=== PATIENT | female | born 1995 | race Caucasian/White ===

== ENCOUNTER 2017-10-06 18:12 | Emergency (ER) | payer OTHER ==
[~2017-10-06] VITALS: Ht 167.6 cm; Wt 136.1 kg
[~2017-10-06 18:12] MED LIST: BIRTH CONTROL; HYDROCODONE-AP1 EAC6 PO; IBUPROFEN 800800 M1 PO; KEFLEX500 MG PO
[2017-10-06 19:05] VITALS: BP 148/88
== END 2017-10-06 19:05 | disposition home or self-care (01) ==
LOC: M.ERS 18:12
DX: S93.691A Other sprain of right foot, initial encounter (principal); Z88.1 Allergy status to other antibiotic agents; Z88.0 Allergy status to penicillin; X50.9XXA Other and unspecified overexertion or strenuous movements or postures, initial encounter; Y93.89 Activity, other specified; Y92.218 Other school as the place of occurrence of the external cause; Y99.8 Other external cause status

== ENCOUNTER 2020-12-09 00:58 | Emergency (ER) | payer OTHER ==
[~2020-12-09] VITALS: Ht 170.2 cm; Wt 122.5 kg
[2020-12-09] MEDS ORDERED: VISTARIL 25 MG25 M1 PO (01:10)
[2020-12-09 01:34] LABS: URINE BILIRUBIN NEGATIVE (Negative); URINE BLOOD 2+ (Negative); URINE CLARITY CLEAR; URINE COLOR YELLOW; URINE GLUCOSE-RANDOM NEGATIVE (Negative); URINE KETONES NEGATIVE (Negative); URINE LEUKOCYTES 1+ (Negative); URINE NITRITE NEGATIVE (Negative); URINE PROTEIN TRACE (Negative); URINE UROBILINOGEN 0.2 E.U./dl (0.2-1.0)
[2020-12-09 02:11] LABS: CASTS None Seen /LPF (None Seen); SQUAMOUS >10 Many /LPF (0-3)
[2020-12-09 02:13] LABS: CRYSTALS None Seen /LPF (None Seen)
[2020-12-09] MEDS ORDERED: CEPHALEXIN500 MG PO (03:24)
[2020-12-09] MEDS ORDERED: PYRIDIUM200 M2 PO (03:24)
[2020-12-09 03:40] VITALS: BP 130/77
[2020-12-09 03:54] LABS: MUCUS None Seen strn/LPF (None Seen)
== END 2020-12-09 03:41 | disposition home or self-care (01) ==
LOC: M.ERS 00:58
PROVIDERS: Personal Emergency Response Attendant
DX: N39.0 Urinary tract infection, site not specified (principal); Z79.899 Other long term (current) drug therapy; Z88.0 Allergy status to penicillin

== ENCOUNTER 2021-03-30 07:31 | Emergency (ER) | payer OTHER ==
[~2021-03-30] VITALS: Ht 170.2 cm; Wt 123.4 kg
[~2021-03-30 07:31] MED LIST changes: +CEPHALEXIN500 MG PO; +PYRIDIUM200 M2 PO; +VISTARIL 25 MG25 M1 PO
[2021-03-30 07:40] VITALS: BP 162/82
[2021-03-30] MEDS ORDERED: ZOLOFT25 MG PO (07:47)
[2021-03-30] MEDS ORDERED: PREDNISONE 20 M20 M1 PO (08:00)
[2021-03-30] MEDS ORDERED: ZPAK PO (08:00)
== END 2021-03-30 08:12 | disposition home or self-care (01) ==
LOC: M.ERS 07:31
DX: J40 Bronchitis, not specified as acute or chronic (principal); Z79.899 Other long term (current) drug therapy; Z88.1 Allergy status to other antibiotic agents; Z88.0 Allergy status to penicillin